=== PATIENT | female | born 1995 | race Caucasian/White ===

== ENCOUNTER → 2016-12-20 | Outpatient (CLI) | payer BC ==
[~2016-12-20] VITALS: Ht 166.4 cm; Wt 100.0 kg
[~2016-12-20] MED LIST: ALLERGY RELIE15.8 ML BOTH NARES; CLARITIN10 M3 PO; PREVACID30 MG PO; PROZAC10 MG PO; SPRINTEC1 EACH PO
== END | disposition home or self-care (01) ==
LOC: AMB 09:30
DX: R10.11 Right upper quadrant pain (principal); R10.32 Left lower quadrant pain; K21.9 Gastro-esophageal reflux disease without esophagitis
CPT/HCPCS: 88305; J2250; J3010

== ENCOUNTER 2016-12-28 10:15 | Day surgery (SDC) | payer BC ==
[~2016-12-28] VITALS: Ht 165.1 cm; Wt 99.8 kg
[2016-12-28 11:14] VITALS: BP 123/69
[2016-12-28] MEDS ORDERED: NORCO 5/3251 TABLET PO (13:13)
[2016-12-28 15:15] VITALS: BP 130/82
[2016-12-28 16:11] VITALS: BP 130/79
[2016-12-28 18:00] VITALS: BP 131/70
== END 2016-12-28 18:25 | disposition home or self-care (01) ==
LOC: SDC 10:15 → EDSTATUS 11:19 → SDC 11:20
PROC: 0FT44ZZ Resection of Gallbladder, Percutaneous Endoscopic Approach (ICD-10-PCS; principal; 2016-12-28)
DX: K81.1 Chronic cholecystitis (principal); K82.8 Other specified diseases of gallbladder
CPT/HCPCS: 88304; J0131; J0690; J1170; J2250; J2405; J2710; J3010

== ENCOUNTER 2017-10-09 18:34 | Observation (INO) | payer BC ==
[~2017-10-09] VITALS: Ht 166.4 cm; Wt 110.8 kg
[~2017-10-09 18:34] MED LIST changes: +NORCO 5/3251 TABLET PO
[2017-10-09 19:54] LABS: HEMATOCRIT 38.9 % (36.0-46.0); MCH 28.3 PG (29.0-34.0); MCHC 33.2 G/DL (30.0-36.0); MCV 85.3 FL (83-99); MEAN PLAT.VOLUME 10.6 uM^3 (9.5-12.4); PLATELET COUNT 315 K/uL (156-360); RBC DIS.WIDTH-CV 13.6 % (11.8-14.6); RBC DIS.WIDTH-SD 42.4 % (39-53); RED BLOOD COUNT 4.56 M/uL (3.80-5.20); WHITE BLOOD COUNT 5.9 K/uL (4.1-10.2)
[2017-10-09 20:03] LABS: CHLORIDE 103 mEq/L (99-109); POTASSIUM 4.2 mEq/L (3.7-5.4); SODIUM 138 mEq/L (136-147)
[2017-10-09 20:05] LABS: GLUCOSE 121 mg/dL (70-99)
[2017-10-09 20:06] LABS: ANION GAP 10 MEQ/L (2-14)
[2017-10-09 20:07] LABS: TOTAL BILIRUBIN 0.2 mg/dL (0.0-1.0)
[2017-10-09 20:08] LABS: ALKALINE PHOSPHATASE 63 IU/L (3-129)
[2017-10-09 20:09] LABS: GFR ESTIMATE (CALCULATED) > 59 mL/min/
[2017-10-09 20:10] LABS: UREA NITROGEN (BUN) 10 mg/dL (9-23)
[2017-10-09 20:12] LABS: LIPASE 22 U/L (1.0-51.0)
[2017-10-09 20:20] LABS: QUANTITATIVE HCG < 4.0 MIU/ML
[2017-10-09] MEDS ORDERED: ZYRTEC10 M2 PO (20:53)
[2017-10-09] MEDS ORDERED: MEPRON750 MG/5 M PO (20:55)
[2017-10-09] MEDS ORDERED: ACIDOPHILUS1 EAC3 PO (20:55)
[2017-10-09] MEDS ORDERED: ZITHROMAX500 MG PO (20:56)
[2017-10-09] MEDS ORDERED: CORTEF5 M1 PO (20:57)
[2017-10-09] MEDS ORDERED: XANAX0.25 MG PO (20:58)
[2017-10-09 21:00] LABS: ADD MIUA? YES; BILIRUBIN NEGATIVE; BLOOD NEGATIVE; COLOR YELLOW ((YELLOW)); GLUCOSE (STRIP) NEGATIVE; KETONES NEGATIVE; LEUKOCYTES SMALL; NITRITE NEGATIVE; PROTEIN (STRIP) NEGATIVE; SPECIFIC GRAVITY 1.016 (1.000-1.030); UROBILINOGEN 0.2 MG/DL (0.2-1.0)
[2017-10-09] MEDS ORDERED: DOXYCYCLINE HY100 MG PO (21:00)
[2017-10-09 21:02] LABS: BACTERIA RARE /HPF; EPITHELIAL CELLS 1+ /HPF; MUCUS TRACE /LPF; RED BLOOD CELLS 0-5 /HPF (0-5); UCUL ADDED? NO; WHITE BLOOD CELLS 0-5 /HPF (0-5)
[2017-10-09] MEDS ORDERED: CYCLOBENZAPRINE10 MG PO (23:53)
[2017-10-09] MEDS ORDERED: ESCITALOPRAM OX20 MG PO (23:55)
[2017-10-09] MEDS ORDERED: HYDROCORTISONE5 MG PO (23:56)
[2017-10-09] MEDS ORDERED: ONDANSETRON ODT4 MG PO (23:58)
[2017-10-09] MEDS ORDERED: ALPRAZOLAM0.25 M2 PO (23:59)
[2017-10-10] MEDS ORDERED: CENTRUM SILVER1 EAC4 PO (00:02)
[2017-10-10] MEDS ORDERED: VITAMIN D3 PO (00:05)
[2017-10-10 01:34] VITALS: BP 138/77
[2017-10-10 08:09] VITALS: BP 127/81
[2017-10-10 09:10] LABS: ALKALINE PHOSPHATASE 51 IU/L (3-129); ANION GAP 10 MEQ/L (2-14); CHLORIDE 108 MEQ/L (99-109); GFR ESTIMATE (CALCULATED) > 59 mL/min/; GLUCOSE 100 mg/dL (70-99); POTASSIUM 4.2 MEQ/L (3.7-5.4); SAMPLE HEMOLYSIS CHECK 0; SAMPLE ICTERIC CHECK 0; SAMPLE LIPEMIA CHECK 0; SODIUM 141 MEQ/L (136-147); TOTAL BILIRUBIN 0.4 MG/DL (0.0-1.0); UREA NITROGEN (BUN) 9 mg/dL (9-23)
[2017-10-10 11:11] VITALS: BP 128/86
[2017-10-10 13:20] LABS: CHLAMYDIA TRACHOMATIS NEGATIVE; NEISSERIA GONORRHOEAE NEGATIVE
[2017-10-10 19:46] VITALS: BP 112/72
[2017-10-10 23:45] VITALS: BP 113/61
[2017-10-11 05:18] LABS: HEMATOCRIT 38.1 % (36.0-46.0); MCHC 31.5 G/DL (30.0-36.0); MCV 85.8 FL (83-99); MEAN PLAT.VOLUME 10.7 uM^3 (9.5-12.4); PLATELET COUNT 316 K/uL (156-360); RBC DIS.WIDTH-CV 13.4 % (11.8-14.6); RBC DIS.WIDTH-SD 41.9 % (39-53); RED BLOOD COUNT 4.44 M/uL (3.80-5.20); WHITE BLOOD COUNT 7.7 K/uL (4.1-10.2)
[2017-10-11 06:03] LABS: ANION GAP 9 MEQ/L (2-14); CHLORIDE 107 MEQ/L (99-109); GFR ESTIMATE (CALCULATED) > 59 mL/min/; GLUCOSE 107 mg/dL (70-99); SAMPLE HEMOLYSIS CHECK 0; SAMPLE ICTERIC CHECK 0; SAMPLE LIPEMIA CHECK 0; SODIUM 139 MEQ/L (136-147); UREA NITROGEN (BUN) 4 mg/dL (9-23)
[2017-10-11 08:00] VITALS: BP 122/80
[2017-10-11] MEDS ORDERED: NORCO 5/3251 TABLET PO (10:59)
[2017-10-11 11:26] VITALS: BP 128/68
[2017-10-11 15:22] VITALS: BP 104/71
[2017-10-11] MEDS ORDERED: ONDANSETRON ODT4 MG PO (20:46)
== END 2017-10-11 21:15 | disposition home or self-care (01) ==
LOC: EME 18:34 → EDOF 10-10 00:23 → 5WEST 10-10 00:23 → EDOF 10-10 00:23 → ENRESERV 10-10 00:24 → 5WEST 10-10 01:34
PROVIDERS: Hospitalist; Physician Assistant
PROC: 0DTJ4ZZ Resection of Appendix, Percutaneous Endoscopic Approach (ICD-10-PCS; principal; 2017-10-10)
DX: K35.80 Unspecified acute appendicitis (principal); A69.20 Lyme disease, unspecified; Z79.2 Long term (current) use of antibiotics; Z90.49 Acquired absence of other specified parts of digestive tract; K21.9 Gastro-esophageal reflux disease without esophagitis; G43.909 Migraine, unspecified, not intractable, without status migrainosus; F32.9 Major depressive disorder, single episode, unspecified; Z80.9 Family history of malignant neoplasm, unspecified; Z83.3 Family history of diabetes mellitus; Z82.0 Family history of epilepsy and other diseases of the nervous system
CPT/HCPCS: 76856; 80048; 80053; 81003; 83690; 84702; 85027; 87210; 87491; 87591; 88304; 99281; 99285; G0378; J1170; J1885; J2175; J2250; J2270; J2405; J2765; J3010; J7030; J7042; S0028; S0074

== ENCOUNTER 2017-12-15 11:55 | Emergency (ER) | payer BC ==
[~2017-12-15] VITALS: Ht 165.1 cm; Wt 112.4 kg
[~2017-12-15 11:55] MED LIST changes: +ACIDOPHILUS1 EAC3 PO; +ALPRAZOLAM0.25 M2 PO; +CENTRUM SILVER1 EAC4 PO; +CORTEF5 M1 PO; +CYCLOBENZAPRINE10 MG PO; +DOXYCYCLINE HY100 MG PO; +ESCITALOPRAM OX20 MG PO; +HYDROCORTISONE5 MG PO; +MEPRON750 MG/5 M PO; +ONDANSETRON ODT4 MG PO; +VITAMIN D3 PO; +XANAX0.25 MG PO; +ZITHROMAX500 MG PO; +ZYRTEC10 M2 PO
[2017-12-15 13:04] LABS: APPEARANCE SL.HAZY ((CLEAR)); BILIRUBIN NEGATIVE; BLOOD NEGATIVE; COLOR YELLOW ((YELLOW)); GLUCOSE (STRIP) NEGATIVE; KETONES NEGATIVE; LEUKOCYTES NEGATIVE; NITRITE NEGATIVE; PROTEIN (STRIP) NEGATIVE; SPECIFIC GRAVITY 1.031 (1.000-1.030); UROBILINOGEN 0.2 MG/DL (0.2-1.0)
[2017-12-15 13:08] LABS: BACTERIA RARE /HPF; EPITHELIAL CELLS 1+ /HPF; MUCUS TRACE /LPF; RED BLOOD CELLS 0-5 /HPF (0-5); UCUL ADDED? NO; WHITE BLOOD CELLS 0-5 /HPF (0-5)
[2017-12-15] MEDS ORDERED: ACIDOPHILUS1 EAC3 PO (13:12)
[2017-12-15] MEDS ORDERED: ALL DAY ALLERGY10 M3 PO (13:13)
[2017-12-15] MEDS ORDERED: AZITHROMYCIN500 M1 PO (13:13)
[2017-12-15] MEDS ORDERED: ATOVAQUONE750 MG/5 M PO (13:13)
[2017-12-15] MEDS ORDERED: CYCLOBENZAPRINE10 MG PO (13:14)
[2017-12-15] MEDS ORDERED: MORGIDOX100 MG PO (13:15)
[2017-12-15] MEDS ORDERED: DICYCLOMINE HCL10 MG PO (13:15)
[2017-12-15] MEDS ORDERED: ESCITALOPRAM OX20 MG PO (13:16)
[2017-12-15] MEDS ORDERED: FLONASE SENSIM9.9 ML BOTH NARES (13:16)
[2017-12-15] MEDS ORDERED: CORTEF5 M1 PO (13:17)
[2017-12-15] MEDS ORDERED: LANSOPRAZOLE30 MG PO (13:17)
[2017-12-15] MEDS ORDERED: LIVER COMPLEX1 EACH PO (13:17)
[2017-12-15] MEDS ORDERED: MELATONIN1 MG PO (13:18)
[2017-12-15] MEDS ORDERED: METOCLOPRAMIDE10 MG PO (13:19)
[2017-12-15] MEDS ORDERED: MULTIVITAMIN1 EAC2 PO (13:19)
[2017-12-15] MEDS ORDERED: NALTREXONE HCL50 MG PO (13:19)
[2017-12-15] MEDS ORDERED: SPRINTEC1 EACH PO (13:20)
[2017-12-15] MEDS ORDERED: TRIMETHOPRIM100 MG PO (13:20)
[2017-12-15] MEDS ORDERED: XANAX1 MG PO (13:21)
[2017-12-15] MEDS ORDERED: VITAMIN D35000 UNIT PO (13:21)
[2017-12-15 13:35] LABS: HEMATOCRIT 41.5 % (36.0-46.0); HEMOGLOBIN 13.5 G/DL (11.9-15.5); MCH 27.5 PG (29.0-34.0); MCHC 32.5 G/DL (30.0-36.0); MCV 84.5 FL (83-99); PLATELET COUNT 105 K/uL (156-360); RBC DIS.WIDTH-CV 14.3 % (11.8-14.6); RBC DIS.WIDTH-SD 44.1 % (39-53); RED BLOOD COUNT 4.91 M/uL (3.80-5.20); WHITE BLOOD COUNT 6.8 K/uL (4.1-10.2)
[2017-12-15 13:44] LABS: D-DIMER ELISA < 150.00 ng/mLDDU (<230)
[2017-12-15 13:47] LABS: ALBUMIN 3.8 g/dL (3.2-4.8); CHLORIDE 105 mEq/L (99-109); POTASSIUM 5.1 mEq/L (3.7-5.4); SODIUM 139 mEq/L (136-147)
[2017-12-15 13:49] LABS: GLUCOSE 92 mg/dL (70-99); TOTAL PROTEIN 7.4 g/dL (6.4-8.3)
[2017-12-15 13:51] LABS: TOTAL BILIRUBIN 0.3 mg/dL (0.0-1.0)
[2017-12-15 13:53] LABS: ALKALINE PHOSPHATASE 77 IU/L (3-129); CREATININE 0.8 mg/dL (0.6-1.3); GFR ESTIMATE (CALCULATED) > 59 mL/min/
[2017-12-15 13:54] LABS: UREA NITROGEN (BUN) 11 mg/dL (9-23)
[2017-12-15 13:55] LABS: AST (GOT) 59 IU/L (2-34)
[2017-12-15 13:56] LABS: ALT (GPT) 37 IU/L (3-49); LIPASE 20 U/L (1.0-51.0)
[2017-12-15 14:02] LABS: QUANTITATIVE HCG < 4.0 MIU/ML
[2017-12-15 17:46] VITALS: BP 120/75
== END 2017-12-15 17:48 | disposition home or self-care (01) ==
LOC: EME 11:55
PROVIDERS: Physician Assistant
DX: K59.00 Constipation, unspecified (principal); K76.0 Fatty (change of) liver, not elsewhere classified; Z79.3 Long term (current) use of hormonal contraceptives; Z79.52 Long term (current) use of systemic steroids; Z86.19 Personal history of other infectious and parasitic diseases; Z90.49 Acquired absence of other specified parts of digestive tract; Z90.89 Acquired absence of other organs
CPT/HCPCS: 71046; 74177; 80053; 81003; 83690; 84702; 85027; 85379; 93005; 99281; 99284; J2270; J2405; J7030